=== PATIENT | female | born 1960 | race Caucasian/White ===

== ENCOUNTER 2016-11-08 09:00 | Inpatient (IN) | payer MEDICAID ==
[~2016-11-08] VITALS: Ht 165.1 cm; Wt 75.0 kg
[~2016-11-08 09:00] MED LIST: ACETAMINOPHEN500 M4 PO; ADVAIR 100-501 EACH INH; ADVAIR 1001 DISK W/D IH; ALBUTEROL SULF8.5 GM IH; AMANTADINE100 MG PO; AMBIEN5 M1 PO; AMBIEN5 MG PO; ANTI-GAS/8080 MG PO; ASPIR 8181 M1 PO; ASPIRIN EC81 MG PO; ASPIRIN325 M3 PO; ASPIRIN325 MG PO; BAYER ASPIRIN325 M1 PO; BENZTROPINE MESY1 M1 PO; BENZTROPINE MESY1 MG PO; BENZTROPINE MESY2 M1 PO; BENZTROPINE PO; BUSPIRONE HCL10 M2 PO; CEROVITE ADVANC1 TAB; CEROVITE ADVANC1 TAB PO; CERTAVITE-LUTE1 EAC2 PO; CETIRIZINE HCL10 M1 PO; CHANTIX1 MG; CIPRO500 MG PO; CLARITIN10 MG PO; CLONAZEPAM0.5 M2 PO; CLONAZEPAM0.5 MG PO; CLONAZEPAM1 M1 PO; CLORAZEPATE DI7.5 MG PO; CLORAZEPATE PO; CLOZARIL100 MG; COLACE100 MG PO; CYTOMEL25 MCG PO; D-AMPHETAMINE SALT PO; DEPAKOTE ER500 MG PO; DEXEDRINE10 MG PO; DOCUSATE CALCI100 MG PO; DOXEPIN HCL100 M1 PO; ELAVIL50 MG PO; ELAVIL75 MG PO; FANAPT8 MG PO; FISH OIL 1,0001 CA1 PO; FLEET ENEMA133 ML PR; FLUOXETINE HCL20 M2 PO; GABAPENTIN100 MG PO; GEODON80 MG PO; HALDOL5 MG/TAB PO; HYDROCODON-ACE1 EA16 PO; HYDROXYZINE HCL25 M1 PO; IMITREX50 M2 PO; KLONOPIN0.5 MG; KLONOPIN0.5 MG PO; KLONOPIN1 M1 PO; L-THYROXINE PO; LAMICTAL XR25 MG PO; LAMICTAL100 M2 PO; LAMICTAL100 MG PO; LATUDA80 M1 PO; LEVOTHROID112 MCG PO; LEVOTHROID137 MCG PO; LEXAPRO20 MG PO; LIPITOR40 M1 PO; LITHIUM CARBON300 M; LORATADINE10 M1 PO; LOVENOX40 MG/0.4 SQ; LUNESTA3 MG; LYRICA100 MG/CAP PO; MELATONIN3 M2 PO; MILK OF MAGNES311 MG PO; MILK OF MAGNESIA PO; MIRALAX17 GM PO; MOBIC15 M2 PO; MULTI-VITAMIN1 EAC3 PO; NORCO 10/325 TA1 TAB PO; NORCO 5/325 TAB1 TAB PO; NUCYNTA50 MG PO; OMEPRAZOLE20 M3 PO; OMEPRAZOLE20 M4 PO; OMEPRAZOLE20 MG PO; OXYGEN; PRAZOSIN HCL2 M2 PO; PRILOSEC20 MG; PRILOSEC20 MG PO; PRINIVIL5 M1 PO; PROTONIX40 MG PO; REQUIP0.5 M1 PO; RESTORIL15 MG PO; REVIA50 M1 PO; ROXICODONE5 M2 PO; ROZEREM8 MG; SENSIPAR30 MG PO; SEROQUEL XR300 MG PO; SEROQUEL100 MG PO; SEROQUEL50 MG PO; SPIRIVA18 MC1 IH; SPIRIVA18 MCG IH; SYMMETREL100 MG PO; SYNTHROID150 MCG PO; SYNTHROID175 MC1 PO; SYNTHROID200 MCG PO; SYNTHROID50 MCG PO; Synthroid PO; TOPAMAX100 MG PO; TOPAMAX50 M3 PO; TRAMADOL HCL50 M2 PO; TRAZODONE HCL100 M1 PO; TRAZODONE HCL100 MG PO; TRAZODONE HCL150 MG; TRAZODONE100 MG PO; TRILIPIX135 M1 PO; TRILIPIX135 MG PO; TYLENOL325 M2 PO; TYLENOL325 MG PO; ULTRAM50 M1 PO; VENTOLIN HFA18 G2 INH; VITAMIN B-12250 MC2 PO; VITAMIN B-650 MG PO; VITAMIN B12500 MCG PO; VITAMIN C PO; VITAMIN D1000 UNIT PO; VITAMIN D31000 UNI3 PO; WELLBUTRIN SR150 M2 PO; WELLBUTRIN SR150 MG; ZANTAC 7575 M1 PO; ZIPRASIDONE HCL40 M1 PO; ZOFRAN4 MG PO; ZOLOFT50 MG PO; ZYPREXA10 MG PO; ZYPREXA5 MG PO; ZYRTEC10 MG PO; [UNRECOGNIZED DRUG - OTHER]; [UNRECOGNIZED DRUG - OTHER] PO
[2016-11-08 10:38] LABS: PROTHROMBIN TIME 10.3 SECONDS (9.0-13.6)
[2016-11-08 11:13] LABS: INR 0.9 INR (0.9-1.1)
[2016-11-10 09:15] LABS: BLOOD UREA NITROGEN 25 mg/dl (6-24); CARBON DIOXIDE-VENOUS 12 mmol/L (22-32); CHLORIDE 111 mmol/l (96-110); CREATININE 1.41 mg/dl (0.50-1.10); GLUCOSE 125 mg/dL (70-110); SODIUM 144 mmol/L (135-145); eGFR VALUE FOR BLACK 47 mL/Min
[2016-11-10 09:35] LABS: ANION GAP 26 mmol/L (0-20); CALCIUM 5.1 mg/dl (8.5-10.5)
[2016-11-10 12:57] LABS: ALBUMIN 3.4 g/dl (3.5-5.0); PHOSPHOROUS 4.6 mg/dl (2.5-4.9)
[2016-11-11 05:58] LABS: BLOOD UREA NITROGEN 17 mg/dl (6-24); CARBON DIOXIDE-VENOUS 23 mmol/L (22-32); CHLORIDE 109 mmol/l (96-110); CREATININE 0.94 mg/dl (0.50-1.10); GLUCOSE 92 mg/dL (70-110); SODIUM 141 mmol/L (135-145); eGFR VALUE FOR BLACK 78 mL/Min
[2016-11-11 06:05] LABS: ANION GAP 13 mmol/L (0-20)
[2016-11-11 06:06] LABS: CALCIUM 8.2 mg/dl (8.5-10.5); POTASSIUM 4.4 mmol/L (3.7-5.1)
[2016-11-13 06:49] LABS: ANION GAP 11 mmol/L (0-20); BLOOD UREA NITROGEN 22 mg/dl (6-24); CALCIUM 8.3 mg/dl (8.5-10.5); CARBON DIOXIDE-VENOUS 20 mmol/L (22-32); CHLORIDE 112 mmol/l (96-110); CREATININE 1.26 mg/dl (0.50-1.10); GLUCOSE 75 mg/dL (70-110); SODIUM 139 mmol/L (135-145); eGFR VALUE FOR BLACK 54 mL/Min
[2016-11-16] MEDS ORDERED: ASPIRIN325 M3 PO (09:11)
[2016-11-16] MEDS ORDERED: ROXICODONE5 M2 PO (09:13)
[2016-11-16] MEDS ORDERED: TUMS200 MG PO (09:18)
== END 2016-11-16 10:10 | DRG 464 ==
LOC: CARE 09:00 → 5EA 09:21 → SHSC 09:21 → CARE 10:00 → ORE 12:31 → PACU 13:20 → 5EA 15:20
PROVIDERS: Family Medicine; ADMIT Orthopaedic Surgery Sports Medicine
PROC: 0SPD09Z Removal of Liner from Left Knee Joint, Open Approach (ICD-10-PCS; principal; 2016-11-08)
PROC: 0SUD09C Supplement Left Knee Joint with Liner, Patellar Surface, Open Approach (ICD-10-PCS; 2016-11-08)
PROC: 5A09357 Assistance with Respiratory Ventilation, Less than 24 Consecutive Hours, Continuous Positive Airway Pressure (ICD-10-PCS; 2016-11-08)
DX: T84.023A Instability of internal left knee prosthesis, initial encounter (principal); K56.7 Ileus, unspecified; I95.9 Hypotension, unspecified; N18.3 Chronic kidney disease, stage 3 (moderate); K91.89 Other postprocedural complications and disorders of digestive system; E83.51 Hypocalcemia; I12.9 Hypertensive chronic kidney disease with stage 1 through stage 4 chronic kidney disease, or unspecified chronic kidney disease; J44.9 Chronic obstructive pulmonary disease, unspecified; E03.9 Hypothyroidism, unspecified; F41.9 Anxiety disorder, unspecified; F32.9 Major depressive disorder, single episode, unspecified; K21.9 Gastro-esophageal reflux disease without esophagitis; K58.9 Irritable bowel syndrome, unspecified; E78.00 Pure hypercholesterolemia, unspecified; M79.7 Fibromyalgia; B19.20 Unspecified viral hepatitis C without hepatic coma; G47.33 Obstructive sleep apnea (adult) (pediatric); F42.9 Obsessive-compulsive disorder, unspecified; Z66 Do not resuscitate; G24.01 Drug induced subacute dyskinesia
CPT/HCPCS: J0171; J1885; J2270; J2405; J2550; J2795; J7030; J7040